=== PATIENT | female | born 1980 | race Caucasian/White ===

== ENCOUNTER 2018-10-17 17:04 | Emergency (ER) | payer MEDICAID, OTHER ==
[2018-10-17 17:32] VITALS: RESP 18
--- NOTE | 2018-10-17 18:34 | C.PDOC ---
History Of Present Illness 37 year old obese female presents to the ED for evaluation of a sharp, stabbing pain to the right side of her chest which began yesterday. Patient states her pain occurs in intermittent episodes, occurring every 5-10 minutes. Patient reports pain with movement and deep breathing. Patient notes she usually carries her bag on her right side and is heavy breasted. Patient denies fever, chills, chest pain, shortness of breath, abdominal pain, recent trauma/injuries. Time Seen by Provider: 10/17/18 18:26 Chief Complaint (Nursing): Chest Pain History Per: Patient History/Exam Limitations: no limitations Onset/Duration Of Symptoms: Hrs Current Symptoms Are (Timing): Still Present Quality: Sharp, "Pain", Other (stabbing ) Exacerbating Factors: Movement, Deep Breathing Additional History Per: Patient Past Medical History Reviewed: Historical Data, Nursing Documentation, Vital Signs Vital Signs: Last Vital Signs Temp 98.0 F 10/17/18 17:29 Pulse 64 10/17/18 17:29 Resp 18 10/17/18 17:29 BP 119/72 10/17/18 17:29 Pulse Ox 96 10/17/18 17:29 - Medical History PMH: No Chronic Diseases Surgical History: No Surg Hx Family History: States: Unknown Family Hx - Social History Hx Tobacco Use: Yes Hx Alcohol Use: Yes Hx Substance Use: No Review Of Systems Constitutional: Negative for: Fever, Chills Cardiovascular: Positive for: Chest Pain (right-sided ) Respiratory: Negative for: Shortness of Breath Gastrointestinal: Negative for: Nausea, Vomiting, Abdominal Pain Physical Exam - Physical Exam Appears: Non-toxic, No Acute Distress Skin: Normal Color, Warm, Dry Head: Atraumatic, Normacephalic Eye(s): bilateral: Normal Inspection Oral Mucosa: Moist Neck: Supple Chest: Symmetrical, No Deformity, Tenderness (reproducible tenderness to the intercostal muscle at the 2nd intercostal space/mid-clavicular line) Cardiovascular: Rhythm Regular, No Murmur Respiratory: Normal Breath Sounds, No Rales, No Rhonchi, No Wheezing Gastrointestinal/Abdominal: Soft, No Tenderness, No Guarding, No Rebound, Other (obese) Back: Muscle Spasm (around right scapula ) Extremity: Normal ROM, No Tenderness, Capillary Refill (less than 2 seconds) Neurological/Psych: Oriented x3, Normal Speech, Normal Cognition, Normal Motor, Normal Sensation ED Course And Treatment ECG: Interpreted By Me Interpretation Of ECG: Normal Sinus Rhythm at rate 63bpm. No ST elevations or depressions. Rate From EC O2 Sat by Pulse Oximetry: 96 (on RA ) Pulse Ox Interpretation: Normal Medical Decision Making Medical Decision Making: Progress: Flexeril PO, Motrin PO and Tylenol PO given. Patient feeling better after medication, will d/c with RX Disposition Counseled Patient/Family Regarding: Studies Performed, Diagnosis, Need For Followup, Rx Given - Disposition Disposition: HOME/ ROUTINE Disposition Time: 18:48 Condition: STABLE Prescriptions: Acetaminophen [Tylenol Extra Strength] 1,000 mg PO TID #18 tablet Cyclobenzaprine [Cyclobenzaprine HCl] 10 mg PO TID #12 tab Ibuprofen [Motrin] 600 mg PO TID #15 tab Instructions: Costochondritis (DC) Forms: [employer] ([place]), General Discharge Instructions - POA Present On Arrival: None - Clinical Impression Clinical Impression: Chest discomfort - Scribe Statement The provider has reviewed the documentation as recorded by the Scribe (Aisha Carlson) Provider Attestation: All medical record entries made by the Scribe were at my direction and personally dictated by me. I have reviewed the chart and agree that the record accurately reflects my personal performance of the history, physical exam, medical decision making, and the department course for this patient. I have also personally directed, reviewed, and agree with the discharge instructions and disposition.
[2018-10-17 19:28] VITALS: BP 118/70; PULSE 79; TEMP 98.2
[2018-10-18 14:32] VITALS: O2SAT 96
--- NOTE | 2018-10-19 21:26 | CARD ---
APPROVED REPORT Date of service: 10/17/2018 EKG Measurement Heart [id number] <Conclusion> Normal sinus rhythm Normal ECG
== END 2018-10-17 19:27 | disposition home or self-care (01) ==
LOC: C.ER 17:04
DX: R07.89 Other chest pain (principal); Z72.0 Tobacco use